=== PATIENT | male | born 1980 | race Caucasian/White ===

== ENCOUNTER 2024-12-23 05:04 | Emergency (ER) | payer SELFPAY ==
[2024-12-23 05:39] LABS: BASOPHILS ABSOLUTE AUTO 0.04 10^3/uL (0.00-0.10); BASOPHILS PERCENT AUTO 0.5 % (0.0-1.0); EOSINOPHILS ABSOLUTE AUTO 0.53 10^3/uL (0.10-0.30); EOSINOPHILS PERCENT AUTO 6.8 % (1.0-3.0); IMMATURE GRAN ABSOLUTE AUTO 0.02 10^3/uL (0.00-0.04); IMMATURE GRAN PERCENT AUTO 0.3 % (0.0-0.4); LYMPHOCYTES ABSOLUTE AUTO 2.03 10^3/uL (1.00-4.00); LYMPHOCYTES PERCENT AUTO 26.2 % (20.0-40.0); MEAN PLATELET VOLUME 10.0 fL (7.4-10.4); MONOCYTES ABSOLUTE AUTO 0.49 10^3/uL (0.10-0.80); MONOCYTES PERCENT AUTO 6.3 % (2.0-8.0); NEUTROPHILS ABSOLUTE AUTO 4.65 10^3/uL (2.50-7.00); NEUTROPHILS PERCENT AUTO 59.9 % (50.0-70.0); PLATELET COUNT,PLT 244 10^3/uL (150-400); RED BLOOD CELL COUNT 4.56 10^6/uL (4.50-6.00); RED CELL DISTRIBUTION WIDTH 14.4 % (11.5-14.5); WHITE BLOOD CELL COUNT,WBC 7.76 10^3/uL (5.00-10.00)
[2024-12-23] MEDS ORDERED: Sodium Chloride 0.9% 10 ML Syringe FLUSH PRN (05:44)
[2024-12-23] MEDS: Metoprolol Tartrate 5 MG/5 ML SDV IVPUSH ONE ×2 (05:50→06:37)
[2024-12-23 05:55] LABS: ALANINE AMINOTRANSFERASE,ALT 43.0 U/L (14-63); ASPARTATE AMNIOTRANSFERASE,AST 31.0 U/L (15-37); BILIRUBIN TOTAL 0.9 mg/dL (0.2-1.0); BLOOD UREA NITROGEN,BUN 12.0 mg/dL (7-18); CARBON DIOXIDE,CO2 26.2 mmol/L (21.0-32.0); CHLORIDE,CL 103.0 mmol/L (98-107); CREATININE 1.24 mg/dL (0.51-1.17); EST CRCL DRUG DOSING (CG) 71.08 mL/min; GLUCOSE RANDOM 108.0 mg/dL (70-140); POTASSIUM,K 3.7 mmol/L (3.5-5.1); PROTEIN TOTAL,TP 7.5 g/dL (6.4-8.2); SODIUM,NA 139.0 mmol/L (136-145)
[2024-12-23 05:56] LABS: ESTIMATED GFR 74.0 mL/min (>=60)
[2024-12-23] MEDS: Ketorolac 30 MG/ML SDV IVPUSH ONE (06:54)
== END 2024-12-23 07:05 | disposition home or self-care (01) ==
LOC: KA.ED 05:04
DX: J32.9 Chronic sinusitis, unspecified (principal); R53.81 Other malaise; I10 Essential (primary) hypertension; Z88.8 Allergy status to other drugs, medicaments and biological substances; Z87.891 Personal history of nicotine dependence
CPT/HCPCS: 36415; 80053; 85025; 87428-QW; 96374; 96375; 96376; 99282-25; J1885; J3490